=== PATIENT | male | born 1945 | race Caucasian/White ===

== ENCOUNTER → 2023-08-29 | Outpatient (CLI) | payer MEDICARE ==
[2023-08-29 16:08] LABS: HCT 40.9 % (39.6-50.0); HGB 13.4 g/dL (13.0-17.0); MCH 34.1 pg (27.0-32.0); MCHC 32.8 g/dL (32.0-37.0); MCV 104.1 FL (80.0-97.0); Mean Platelet Volume 9.9 FL (9.5-12.2); NRBC Per 100 WBC 0 X 10*3/uL (0.00-0.01); Platelet Count 205 X 10*3/uL (140-440); RBC 3.93 X 10*6/uL (4.40-5.60); RDW 13.2 % (11.5-14.5); WBC 4.22 X 10*3/uL (4.50-10.00)
[2023-08-29 16:13] LABS: Blood Urea Nitrogen 21.2 mg/dL (9.0-27.0); Chloride 104 mmol/L (96-109); Potassium 4.1 mmol/L (3.5-5.5); Sodium 140 mmol/L (135-145)
== END | disposition home or self-care (01) ==
LOC: LABPAT 11:13
PROVIDERS: ATTEND Internal Medicine Infectious Disease
DX: Z01.812 Encounter for preprocedural laboratory examination (principal); R06.02 Shortness of breath
CPT/HCPCS: 80051; 82565; 84520; 85027

== ENCOUNTER 2023-09-10 07:33 | Day surgery (SDC) | payer MEDICARE ==
[2023-09-06 11:14] VITALS: BMI 30.8
[~2023-09-10 07:33] MED LIST: ALPRAZolam 0.25 MG TAB PO PRN; ALPRAZolam 0.5 MG TAB PO PRN; ASPIRIN 325 MG TAB PO STA; NITROGLYCERIN SL TABS 0.4 MG TAB SUBLINGUAL PRN
[2023-09-10] MEDS: SODIUM CHLORIDE 0.9% 1,000 ML in EMPTY BAG 1 BAG IV SCH (08:16)
[2023-09-10 08:47] VITALS: RESP 18; TEMP 98.1
[2023-09-10] MEDS ORDERED: VERAPAMIL 2.5 MG/ML 2 ML AMP ONE (08:58)
[2023-09-10] MEDS ORDERED: LIDOCAINE 1% INJ 10MG/ML (20 ML MDV) ONE (08:58)
[2023-09-10] MEDS ORDERED: HEPARIN SODIUM 1,000 UN/ML (10ML VL) ONE (08:58)
[2023-09-10] MEDS: MIDAZOLAM 2 MG/2 ML VIAL IVP ONE (09:37)
[2023-09-10] MEDS: LIDOCAINE 1% INJ 10MG/ML (20 ML MDV) SQ ONE (09:38)
[2023-09-10] MEDS: VERAPAMIL SYRINGE (5 MG/10 ML) INTRAARTER ONE (09:39)
[2023-09-10] MEDS: HEPARIN SODIUM 1,000 UN/ML (10ML VL) IV ONE (09:41)
[2023-09-10] MEDS: IOPAMIDOL-370 100ML BTL INJ ONE (09:47)
[2023-09-10] MEDS ORDERED: RX INFO: IV CONTRAST WAS GIVEN 1 EACH MISC MISCELLANE PRN (09:51)
[2023-09-10] MEDS ORDERED: SODIUM CHLORIDE 0.9% 1,000 ML IV SCH (10:00)
--- NOTE | 2023-09-10 10:01 | P.PCN ---
Date of Procedure: 09/10/23 Operative Findings: CARDIAC CATHETERIZATION PERFORMING PHYSICIAN: Az Hall MD, RPVI PROCEDURE PERFORMED: 1. Selective right and left coronary angiogram 2. Left heart catheterization 3. Ultrasound-guided access of the right radial artery INDICATION: An episode of syncope in this 78-year-old gentleman who underwent myocardial perfusion imaging stress test and that came in to be abnormal showing an inferior ischemia COMPLICATION: None APPROACH: Right radial artery LEVEL OF SEDATION: Moderate with a sedation length of 10 minutes PROCEDURE DESCRIPTION: After obtaining an informed consent, the patient was brought to cardiac slab inspector. Local anesthesia was performed using lidocaine subcutaneously. The right radial artery was cannulated using Seldinger technique, the guidewire passed easily, following that we advanced a 5-Bangladeshi sheath dilator assembly, the wire and dilator were removed and sheath was flushed. Following that, 2 mg of verapamil along with 5000 unit heparin were given. Selective right and left coronary angiogram using a 6-Bangladeshi JR4 and JL 3.5 catheters. Following that we did left heart catheterization using 6-Bangladeshi pigtail catheter. The procedure was completed there was no complication. SELECTIVE CORONARY ANGIOGRAM: The right coronary artery: Large-caliber vessel and a nondominant vessel and appears to be angiographically normal Left main: Is angiographically normal The left circumflex: Large-caliber vessel a dominant vessel. The LCx gives rise into an OM1 which appears to have mild disease. Otherwise the LCx appears to be normal The left anterior descending artery: Large-caliber vessel appears to have mild disease only gives rise into a diagonal branch which has mild disease to moderate disease by the ostium. HEMODYNAMICS: The LVEDP was 17 mmHg with no significant gradient was noted across aortic valve CONCLUSION: 1. Mild to moderate nonobstructive coronary artery disease 2. Normal left-sided filling pressure POSTPROCEDURE MANAGEMENT: Medical treatment
[2023-09-10 15:31] VITALS: BP 128/64; PULSE 64
== END 2023-09-10 14:57 | disposition home or self-care (01) ==
LOC: CATHCVL 07:33
PROVIDERS: ATTEND Internal Medicine Interventional Cardiology
DX: I25.10 Atherosclerotic heart disease of native coronary artery without angina pectoris (principal); I44.0 Atrioventricular block, first degree; I10 Essential (primary) hypertension; E78.5 Hyperlipidemia, unspecified; F17.210 Nicotine dependence, cigarettes, uncomplicated; Z79.82 Long term (current) use of aspirin; Z79.899 Other long term (current) drug therapy; Z87.898 Personal history of other specified conditions
CPT/HCPCS: 93458; 76937; C1769; C1894; J2250; J2001; J1644; Q9967